=== PATIENT | female | born 1975 | race Caucasian/White ===

== ENCOUNTER 2020-03-18 12:53 | Emergency (ER) | payer BC, OTHER, SELFPAY ==
[~2020-03-18] VITALS: Ht 157.5 cm; Wt 80.2 kg
[2020-03-18 13:06] VITALS: BP 116/74
--- NOTE | 2020-03-18 13:47 | NUR ---
D/C INSTRUCTIONS, MEDS & F/U APPT RV'WD WITH PT, SHE VERBALIZES UNDERSTANDING. RX GIVEN X2. PT AMBULATED OUT OF ED WITHOUT DIFFICULTY.
[2020-03-18] MEDS ORDERED: CLON0.1T22 PO (13:48)
== END 2020-03-18 13:48 | disposition home or self-care (01) ==
LOC: ED 13:37
DX: H66.91 Otitis media, unspecified, right ear (principal); R68.84 Jaw pain
CPT/HCPCS: 99283